=== PATIENT | male | born 1975 | race Caucasian/White ===

== ENCOUNTER 2020-09-16 18:59 | Emergency (ER) | payer BC ==
[~2020-09-16] VITALS: Ht 188 cm; Wt 131.8 kg
[2020-09-16 19:13] VITALS: TEMP 97.9
[2020-09-16] MEDS ORDERED: AMOXICILLIN 8751 TAB PO (21:08)
[2020-09-16 21:54] VITALS: BP 124/87; PULSE 82
== END 2020-09-16 21:24 | disposition home or self-care (01) ==
LOC: COL.ER 18:59
DX: S02.2XXA Fracture of nasal bones, initial encounter for closed fracture (principal); S01.511A Laceration without foreign body of lip, initial encounter; F17.210 Nicotine dependence, cigarettes, uncomplicated; X58.XXXA Exposure to other specified factors, initial encounter; Y92.59 Other trade areas as the place of occurrence of the external cause; Y99.0 Civilian activity done for income or pay